=== PATIENT | male | born 1990 | race Caucasian/White ===

== ENCOUNTER 2016-10-29 05:11 | Emergency (ER) | payer MEDICAID | END 2016-10-29 06:15 | disposition home or self-care (01) | LOC: D.ER 05:11 | DX: J01.90 Acute sinusitis, unspecified (principal); J20.9 Acute bronchitis, unspecified; F17.200 Nicotine dependence, unspecified, uncomplicated; R05 Cough; R06.00 Dyspnea, unspecified ==